=== PATIENT | male | born 1975 | race Caucasian/White ===

== ENCOUNTER 2021-08-25 08:56 | Outpatient (CLI) | payer OTHER, SELFPAY ==
--- NOTE | ~2021-08-25 | CT_ITS ---
Corrected Report Correction to ordering provider 08/25/2021 [facility] EXAMINATION: CT abdomen pelvis w con INDICATION: Epigastric abdominal pain TECHNIQUE: Computed tomographic images of the abdomen and pelvis were obtained after the administration of 100 cc of Omnipaque 350 intravenous contrast. The dose-length product (DLP) was 887.57 mGy-cm. Automated exposure control and iterative reconstruction technique were employed. COMPARISON: 08/21/2010 FINDINGS: Minimal dependent atelectasis is present in the lung bases. The heart size is normal. The liver, spleen, pancreas, gallbladder, and adrenal glands are normal. Cysts of the kidneys measure up to 1.3 cm on the right. No pathologically enlarged abdominal or pelvic lymph nodes are identified. The appendix is normal. There is no free intraperitoneal gas or evidence of bowel obstruction. There is moderate lumbar spondylosis at L4-5. IMPRESSION: 1. No CT correlate for the patient's symptoms. Reviewed, dictated and finalized at location A. MTDD
== END 2021-08-25 08:57 ==
PROVIDERS: PCP Student in an Organized Health Care Education/Training Program; Visit Provider Student in an Organized Health Care Education/Training Program
DX: R10.13 Epigastric pain (principal); R10.12 Left upper quadrant pain; M47.816 Spondylosis without myelopathy or radiculopathy, lumbar region
CPT/HCPCS: 74177; Q9967

== ENCOUNTER 2023-07-28 19:43 | Observation (INO) | payer SELFPAY ==
[2023-07-28] VITALS (17 sets, daily range): BP systolic 123–192; BP diastolic 95–115; PULSE 84–130; RESP 10–26; TEMP 36.2; O2SAT 96–100; BMI 31.9
--- NOTE | ~2023-07-28 | XR_ITS ---
EXAMINATION: XR chest 1V portable Exam Date/Time: 07/28/2023 20:32 CDT HISTORY: Dyspnea, HX OF ASTHMA Comparison: None. RESULT: Lines, tubes, and devices: None. Lungs and pleura: Clear. Cardiomediastinal silhouette: Unremarkable. Other: No acute osseous or upper abdominal finding. IMPRESSION: No acute cardiopulmonary process. Reviewed, dictated and finalized at location K.
--- NOTE | 2023-07-28 19:50 | PC.NURSE ---
Per EDP Dr. Lazaro call respiratory and have patient placed on Bi-pap
--- NOTE | 2023-07-28 19:51 | ECG_ITS ---
Measurements Intervals [place] Rate: 125 P: 87 W[place]: 162 QRS: 69 QRSD: 98 T: 82 QT: 335 QTc: 485 Interpretive Statements SINUS TACHYCARDIA NONSPECIFIC ST AND T-WAVE ABNORMALITY BASELINE ARTIFACT PRESENT NO PREVIOUS ECG AVAILABLE FOR COMPARISON Electronically Signed On 07-29-2023 13:25:12 CDT by Natalia Burt M.D.
[2023-07-28] MEDS: MAGNESIUM SULF 2 GM/WATER 50ML 2 GM/50 ML BAG IVPB (19:59)
[2023-07-28] MEDS: SODIUM CHLORIDE 0.9% IV 1,000 ML 999 ML IV CONT (20:00)
[2023-07-28] MEDS: IPRATROPIUM 0.5 MG/ALBUTEROL SULFATE 2.5 MG AMPUL.NEB 3 ML 12 ML INHALATION ×2 (20:00→21:30)
[2023-07-28] MEDS: dexAMETHasone SOD PHOS INJ 10 MG/ML 1 ML VIAL IV PUSH (20:00)
[2023-07-28 20:07] LABS: Basophils Absolute Auto 0.1 K/mm3 (0.0-0.1); Basophils Percent Auto 1.4 % (0.2-1.2); Eosinophils Absolute Auto 0.5 K/mm3 (0-0.3); Eosinophils Percent Auto 4.8 % (0-4.4); Hematocrit 44.7 % (42.0-52.0); Hemoglobin 16.2 g/dL (14.0-18.0); Immature Granulocyte Absolute 0.02 K/mm3 (0.00-0.031); Immature Granulocyte Percent A 0.2 % (0-0.5); Lymphocytes Absolute Auto 4.39 K/mm3 (0.9-3.2); Lymphocytes Percent Auto 46.1 % (18.3-44.2); Mean Corpuscular HGB Conc 36.2 g/dl (32-36); Mean Corpuscular Hemoglobin 32.3 pg (26-34); Mean Corpuscular Volume 89.2 fl (80-100); Mean Platelet Volume 8.7 fl (7.4-10.4); Neutrophils Absolute Auto 3.6 K/mm3 (1.3-6.7); Neutrophils Percent Auto 37.5 % (45.5-73.1); Platelet Count Result 318 k/mm3 (150-375); Red Blood Count 5.01 M/mm3 (4.6-6.20); Red Cell Distribution Width 11.9 % (11.5-14.5); White Blood Count 9.5 K/mm3 (4.5-10.0)
[2023-07-28 20:17] LABS: Alanine Aminotransferase 38 U/L (6-50); Albumin Level 4.9 g/dL (3.5-5.1); Alkaline Phosphatase 90 U/L (38-126); Anion Gap 11 mmol/L (4-12); Aspartate Amino Transferase 34 U/L (17-59); Bilirubin,Total 0.6 mg/dL (0.2-1.3); Blood Urea Nitrogen 25 mg/dL (9-20); Calcium 9.8 mg/dL (8.4-10.2); Carbon Dioxide 24 mmol/L (22-30); Chloride 105 mmol/L (98-107); Estimated CRCL calculation 80 ml/min; Estimated Glomerular Filt Rate > 60; Glucose 95 mg/dL (65-110); Potassium 3.6 mmol/L (3.4-5.0); Sodium 140 mmol/L (137-145)
[2023-07-28 20:19] LABS: Alveolar/Arterial O2 Gradient 115.7 mmHg; Base Excess ABG 2.4 mEq/l (+/-2.0); Fractional Inspired Oxygen 40 %; HCO3 ABG 21.3 mEq/l (22.0-26.0); Oxygen Content ABG 22.2 %vol (16.0-22.0); Oxygen Saturation ABG 99.3 % (95.0-100.0); Oxyhemoglobin 97.6 % THb (90.0-100.0); PO2 ABG 144.9 mmHg (80.0-100.0); PO2 FiO2 Ratio Arterial Blood 3.62 %
[2023-07-28 20:23] LABS: Device NON-INVASIVE VENT; Modified Allen's Test Pass; PCO2 ABG 21.4 mmHg (35.0-45.0); Site Drawn RIGHT RADIAL; pH ABG 7.615 (7.350-7.450)
[2023-07-28 20:24] LABS: Non-Invasive Expiratory Pressure 6 CMH2O; Non-Invasive Inspiratory Pressure 12 CMH2O; Non-Invasive Vent Rate 4 /MIN
[2023-07-28 20:25] LABS: NT Pro B Type Natriuretic Pept < 20 pg/mL (19.9-100)
[2023-07-28 20:44] LABS: Influenza A QL RT-PCR Negative (Negative); Influenza B QL RT-PCR Negative (Negative); RSV RNA, RT-PCR Negative (Negative); SARS-CoV-2 RNA PCR Negative (Negative)
--- NOTE | 2023-07-28 21:30 | ED.GENADULT ---
HPI - General Adult General Chief complaint: Shortness of Breath/Dyspnea Stated complaint: short of breath Time Seen by Provider: 07/28/23 19:49 History of Present Illness HPI narrative: this is a 47-year-old male presenting with shortness of breath. Patient said that 1 hour prior to arrival he started to get short of breath with significant wheezing. He does not know what triggered it. He relates this to asthma attacks he has had the past. patient notes he has had a productive cough for the last several months. Additionally he ran out of his inhaled corticosteroid several months ago and has not been able to afford a refill. Patient denies fevers chills chest pain abdominal pain or lower extremity edema. Patient required intubation over 30 years ago. Related Data Allergies Allergy/AdvReac Type Severity Reaction Status Date / Time aspirin Allergy Mild VOMITING Verified 10/01/21 12:42 [facility] Past Medical History Medical History Asthma Family History Family History Father Family history of bipolar disorder Family history of alcoholism Sibling Family history of bipolar disorder Patient's sister is in good health Family history of alcoholism Mother Patient's mother is in good health Social History Social History Smoking status: Former smoker Smoking end date: 04/24/00 Alcohol intake: never Substance use type: marijuana Exam Narrative: APPEARANCE: Patient is in respiratory distress Head: atraumatic. EYES: EOMI, NOSE: Atraumatic NECK: Trachea midline RESPIRATORY: tripoding, 1-2 word dyspnea or wheezing in all vazquez CARDIOVASCULAR: tachycardic, no peripheral edema ABDOMINAL: Non-distended MUSCULOSKELETAl: No obvious deformities NEURO: Alert. Moving 4/4 extremities SKIN:: Warm, dry. Normal color PSYCHIATRIC: Normal affect Course Vital Signs Vital signs: Vital Signs Pulse Rate 130 H 07/28/23 19:47 Respiratory Rate 23 H 07/28/23 19:47 Blood Pressure 192/115 H 07/28/23 19:47 Pulse Oximetry 98 07/28/23 19:47 Oxygen Delivery Room Air 07/28/23 19:47 Pulse Rate 88 07/28/23 21:33 Respiratory Rate 12 07/28/23 21:33 Blood Pressure 142/98 H 07/28/23 21:01 Pulse Oximetry 99 07/28/23 21:01 Oxygen Delivery Room Air 07/28/23 20:20 Medical Decision Making [facility] Narrative Medical decision making narrative: -Course: 47-year-old male presenting with respiratory distress due to asthma. Patient placed on BiPAP on arrival. Given DuoNeb treatments steroids and magnesium. Workup unremarkable. Unclear as to what triggered his asthma although he has been off of his inhaled corticosteroid for several months. After his initial breathing treatment he was weaned off bipap but still with significant wheezing. Patient be placed in observation overnight for q.6 hour nebs and steroids. -DDX includes but is not limited to: Asthma exacerbation 2/2 medication noncompliance, viral illness, pneumonia, environmental exposure -Co-morbidities complicating care: asthma exacerbation, degenerative disc disease -Social determinants of health: unemployed, used to work in a warehouse. Remote tobacco use. Recently quit using marijuana. -Independent interpretation of studies: Labs reviewed within normal limits ABG showed a metabolic alkalosis. chest x-ray unremarkable. Viral swabs negative Independent EKG interpretation: Rhythm [sinus], Rate [125], [place] -[normal], CO -[normal], QRS [narrow], QTC [normal], T waves -[negative for concerning inversions], ST Segments - [Negative for concerning elevations] Final interpretations: sinus tachycardia -Discussion of Management/Consultants: Angelica - Hospitalist -Interventions: DuoNeb x2, magnesium, steroids -Shared decision making / Disposition: admitted Vital Signs V
--- NOTE | 2023-07-28 23:22 | PM.IMHP ---
H&P: HPI History of Present Illness Date/Time: 07/28/23 23:22 Chief Complaint: SHORTNESS OF BREATH Narrative: THIS IS A 47-YEAR-OLD MALE WITH PAST MEDICAL HISTORY OF ASTHMA, PATIENT IS ALSO FORMER SMOKER QUIT OVER 20 YEARS AGO. PRESENTS TO THE EMERGENCY ROOM DUE TO SHORTNESS OF BREATH FOR THE LAST WEEK OR SO WHICH GOT WORSE IN THE LAST SEVERAL HOURS ACCORDING TO PATIENT HE HAS BEEN USING HIS INHALER QUITE OF 10 HAS HAD SPUTUM PRODUCTION OF YELLOW SPUTUM, DENIES FEVERS RIGORS OR CHILLS. UPON ARRIVAL TO EMERGENCY ROOM PATIENT DID REQUIRE BIPAP REQUIRE SEVERAL NEB TREATMENTS. PATIENT HAS BEEN PLACED IN OBSERVATION FOR FURTHER EVALUATION MANAGEMENT AND TREATMENT. EXAMINATION:? XR chest 1V portable Exam Date/Time:? 07/28/2023 20:32 CDT HISTORY: Dyspnea, HX OF ASTHMA ? Comparison:? None. RESULT: Lines, tubes, and devices:? None. Lungs and pleura:? Clear. Cardiomediastinal silhouette:? Unremarkable. Other:? No acute osseous or upper abdominal finding. ? IMPRESSION: No acute cardiopulmonary process. EXAMINATION: CT abdomen pelvis w con INDICATION: Epigastric abdominal pain TECHNIQUE: Computed tomographic images of the abdomen and pelvis were obtained after the administration of 100 cc of Omnipaque 350 intravenous contrast. The dose-length product (DLP) was 887.57 mGy-cm. Automated exposure control and iterative reconstruction technique were employed. COMPARISON: 08/21/2010 FINDINGS: Minimal dependent atelectasis is present in the lung bases. The heart size is normal. The liver, spleen, pancreas, gallbladder, and adrenal glands are normal. Cysts of the kidneys measure up to 1.3 cm on the right. No pathologically enlarged abdominal or pelvic lymph nodes are identified. The appendix is normal. There is no free intraperitoneal gas or evidence of bowel obstruction. There is moderate lumbar spondylosis at L4-5. IMPRESSION: 1. No CT correlate for the patient's symptoms. Review of Systems Review of Systems: SHORTNESS OF BREATH COUGH PRODUCTIVE OF YELLOW SPUTUM WHEEZES Constitutional: Constitutional: Denies chills, Denies fever(s), Denies malaise and Denies weakness Eyes: Eyes: Denies change in vision ENT: Denies dysphagia and Denies odynophagia Cardiovascular: Cardiovascular: Denies chest pain, Denies radiating jaw, neck or arm pain and Denies palpitations Respiratory: Respiratory: Denies change in phlegm color, Reports chest congestion, Reports cough, Reports excessive phlegm production, Reports dyspnea and Reports wheezing Gastrointestinal: Gastrointestinal: Denies abdominal pain, Denies dyspepsia, Denies heartburn, Denies diarrhea, Denies nausea and Denies vomiting Genitourinary: Genitourinary: Denies dysuria Musculoskeletal: Musculoskeletal: Denies back pain, Denies myalgias, Denies arthralgias and Denies muscle weakness Integumentary/Breasts: Skin/Breast: Denies rash Neurologic: Denies focal weakness and Denies Sensory deficit (Neuro) Psychiatric: Psychiatric: Reports no additional psychiatric complaints and Reports as per HPI Endocrine: Endocrine: Denies cold intolerance, Denies heat intolerance, Denies polyphagia, Denies polydipsia, Denies polyuria and Denies palpitations Hematologic/Lymphatic: Hematologic/Lymphatic: Reports no additional hematologic/lymphatic complaints and Reports as per HPI Allergic/Immunologic: Allergic/Immunologic: Reports no additional allergic/immunologic complaints and Reports as per HPI PMFSH Past Medical History Medical History Asthma Family History Family History Father Family history of bipolar disorder Family history of alcoholism Sibling Family history of bipolar disorder Patient's sister is in good health Family history of alcoholism Mother Patient's mother is in good health Social History Social History (Reviewed 07/28/23 @ 21:31 by Enrico Rivas
[2023-07-29] VITALS (7 sets, daily range): BP systolic 158; BP diastolic 96; PULSE 80–100; RESP 14–16; TEMP 37.1; O2SAT 96–97
[2023-07-29] MEDS: methylPREDNISolone SOD SUCC 125 MG VIAL 60 MG IV PUSH ×3 (00:36→12:04)
[2023-07-29] MEDS: IPRATROPIUM 0.5 MG/ALBUTEROL SULFATE 2.5 MG AMPUL.NEB 3 ML INHALATION ×3 (02:38→13:26)
--- NOTE | 2023-07-29 08:11 | PM.IMPN ---
Progress Note: A&P Assessment and Plan (1) Asthma exacerbation: Code(s): J45.901 - Unspecified asthma with (acute) exacerbation Status: Acute Assessment and Plan: - Trigger: Unknown - Oxygen requirement: Placed on Bipap on admission. Now on room air. Oxygen saturation stable. - Home medication: Albuterol PRN and fluticasone daily. Patient unable to afford steroid and has been out for several months. He has needed his albuterol inhaler more often as a result. - Chest XR unremarkable - ABG shows metabolic alkalosis 7.6/21.4/144/21 - Current treatment: duoneb and steroid q 6 hr - Continue to monitor Subjective Date/time seen: 07/29/23 08:11 Interval history: 47 year old male with past medical history of asthma, presented to the hospital for worsening shortness of breath. Exam Narrative: AF General: well nourished, well-developed male in no acute respiratory distress who is nontoxic appearing, lying semi recumbent in bed. HEENT: Normocephalic. Atraumatic. Pupils equal round reactive to light. Extraocular movement intact. Sclera clear and anicteric. Nares patent. No oral lesions. Moist mucous membranes. Tongue is midline. Palate maurizio symmetrically. No facial asymmetry. Neck: Neck was supple. No dominant adenopathy, thyromegaly or masses. 2+ carotid upstrokes without bruits. Chest: Lungs are clear to auscultation bilaterlly. No wheezes or crackles. CV: Heart was regular rate and rhythm. S1/S2. No murmurs, gallops, or rubs. Abd: Abdomen was soft. Nontender. Nondistended. Postive bowel sounds. No organomegaly or masses. Ext: No clubbing, cyanosis, or edema. 2+ DP pulses bilaterally. Neuro: Patient is alert and oriented x4. Strenth is 5/5 in both upper and lower extremities. Cranial nerves 2-12 are intact. Speech is clear. Psych: Normal nood and affect. Patient is pleasant and cooperative. Skin: Warm and dry. No rashes noted. Objective Data Vital Signs Vital Signs: Vital Signs - 24 hr 07/28/23 19:47 07/28/23 19:51 07/28/23 20:20 Temperature Pulse Rate 130 H 97 Respiratory Rate 23 H Blood Pressure 192/115 H Pulse Oximetry 98 97 Oxygen Delivery Room Air Room Air 07/28/23 20:20 07/28/23 20:10 07/28/23 20:16 Temperature Pulse Rate 125 H 101 H Respiratory Rate 26 H 20 Blood Pressure 153/96 H Pulse Oximetry 97 100 Oxygen Delivery Room Air 07/28/23 21:01 07/28/23 21:33 07/28/23 21:10 Temperature Pulse Rate 91 88 94 Respiratory Rate 12 12 16 Blood Pressure 142/98 H Pulse Oximetry 99 Oxygen Delivery 07/28/23 21:16 07/28/23 21:32 07/28/23 21:46 Temperature Pulse Rate 93 91 84 Respiratory Rate 14 10 L 14 Blood Pressure 123/104 H 172/105 H 158/95 H Pulse Oximetry 100 99 99 Oxygen Delivery 07/28/23 22:41 07/28/23 20:00 07/28/23 22:48 Temperature Pulse Rate 88 Respiratory Rate 12 Blood Pressure Pulse Oximetry 97 96 Oxygen Delivery BiPAP Room Air 07/28/23 22:48 07/28/23 22:39 07/28/23 20:00 Temperature Pulse Rate 95 128 H Respiratory Rate 18 26 H Blood Pressure 169/95 H Pulse Oximetry 96 97 100 Oxygen Delivery Room Air BiPAP 07/28/23 21:35 07/28/23 23:56 07/29/23 02:36 Temperature 97.1 F L Pulse Rate 84 89 82 Respiratory Rate 12 16 14 Blood Pressure 161/98 H Pulse Oximetry 100 97 Oxygen Delivery BiPAP 07/29/23 04:14 07/29/23 02:46 07/29/23 02:35 Temperature 98.7 F Pulse Rate 100 84 Respiratory Rate 16 14 Blood Pressure 158/96 H Pulse Oximetry 97 96 Oxygen Delivery Room Air 07/29/23 07:38 Temperature Pulse Rate 80 Respiratory Rate 14 Blood Pressure Pulse Oximetry Oxygen Delivery Intake/Output Intake/Output: Intake & Output 07/26/23 07/27/23 07/28/23 07/29/23 23:59 23:59 23:59 23:59 Intake Total 1050 Balance 1050 Meds/Results Medications: Active Medications Generic Name Dose Route Start Last Admin Trade Name Freq PRN Reason Stop Dose Ad
--- NOTE | 2023-07-29 14:02 | PM.DS ---
DS: Admitting Diagnosis Discharge Date 07/29/2023 Admitting Diagnosis Acute Asthma Exacerbation DS: Discharge Diagnosis Discharge Diagnosis (1) Asthma exacerbation: Code(s): J45.901 - Unspecified asthma with (acute) exacerbation Status: Acute DS: Summary Hospital Course Reason for hospitalization: Acute asthma exacerbation Hospital Course: 47 year old male with history of asthma reported to the ED for asthma exacerbation with unknown trigger requiring BIPAP on arrival. A chest XR was obtained and showed no acute cardiopulmonary process. He was started on DuoNeb treatments, steroids, and magnesium. An ABG showed metabolic alkalosis. Labs were unremarkable and viral swabs were negative. Patient was weaned off of bipap back on to room air following the duoneb and steroid treatment. His lungs are now clear on auscultation without audible wheezing. He is able to maintain full sentences and does not appear in respiratory distress. He states that he is suppose to be on a daily steroid for his asthma but has been unable to afford the medication for the past 4 months. He has been taking his albuterol inhaler 10-12 times a day during that time. He notes that he does not have health insurance currently because he is unemployed, does not qualify for medicaid, and was unable to get on his wifes insurance. [facility] was used to find a daily steroid for this patient that is at a cheaper cost than his previous. Discussed with him starting a high dose fluticasone propionate and gave him the cost per [facility]. He states that he could afford the medication and will pick it up after discharge. Patient advised to follow up with his primary care provider about the new medication and to have a low threshold of return to the hospital if he develops worsening shortness of breath or wheezing. Patient and his state understanding. Patient was discharged home with in a stable condition. He was started on high dose fluticasone propionate and will continue his other home medications as prescribed. He is to follow up with his primary care provider in a week to discuss hospitalization and new medication. Status at Discharge Functional status at discharge: independent ambulation Time Spent with Patient Time attestation: Total time spent providing and/or coordinating discharge services: Time spent: Greater than 30 minutes Exam Narrative: AF HR 82 RR 14 SpO2 97 BP 158/96 General: well nourished, well-developed male in no acute respiratory distress who is nontoxic appearing, sitting up in bed. HEENT: Normocephalic. Atraumatic. Pupils equal round reactive to light. Extraocular movement intact. Sclera clear and anicteric. No facial asymmetry. Chest: Lungs are clear to auscultation bilaterally. No wheezes or crackles. CV: Heart was regular rate and rhythm. S1/S2. No murmurs, gallops, or rubs. Abd: Abdomen was soft. Nontender. Nondistended. Positive bowel sounds. No organomegaly or masses. Ext: No clubbing, cyanosis, or edema. 2+ DP pulses bilaterally. Neuro: Patient is alert and oriented x4. Speech is clear. Psych: Normal mood and affect. Patient is pleasant and cooperative. Skin: Warm and dry. No rashes noted. DS: Data Data Completed and Pending Completed studies during hospitalization: Chest XR Labs on day of discharge: Labs from last 24 hours 07/28/23 07/28/23 20:04 19:55 WBC 9.5 RBC 5.01 Hgb 16.2 Hct 44.7 MCV 89.2 MCH 32.3 MCHC 36.2 H RDW 11.9 Plt Count 318 MPV 8.7 Immature Gran % (Auto) 0.2 Neut % (Auto) 37.5 L Lymph % (Auto) 46.1 H Rhea % (Auto) 10.0 H Eos % (Auto) 4.8 H Baso % (Auto) 1.4 H Lymph # (Auto) 4.39 H Rhea # (Auto) 1.0 H Eos # (Auto) 0.5 H Baso # (Auto) 0.1 Abs Immat Gran (auto) 0.02 Absolute Neuts (auto) 3.6 Absolute Nucleated RBC 0.000 Nucleated RBC % 0.0 Puncture Site Right radial ABG pH 7.615 H* ABG pCO2 21.4 L* ABG pO2 144.9 H ABG PO2/FiO2 Ratio
--- NOTE | 2023-07-31 15:23 | PC.NURSE ---
RN opened this chart to look at discharge information due to patient calling this unit and stating he is unable to get his medication from the pharmacy. RN called [facility] in [place] and confirmed with pharmacist the medication and she has all the information she needs. RN then called patient back and informed him that he should now be able to get his medication.
== END 2023-07-29 14:20 | disposition home or self-care (01) ==
LOC: ANHED 21:45 → ANH3MEDSUR 23:22
PROVIDERS: Admitting Provider Internal Medicine; Emergency Provider Emergency Medicine; PCP Student in an Organized Health Care Education/Training Program; Visit Provider Internal Medicine
DX: J45.901 Unspecified asthma with (acute) exacerbation (principal); Z20.822 Contact with and (suspected) exposure to COVID-19; Z87.891 Personal history of nicotine dependence
CPT/HCPCS: 36415; 36600; 71045; 80053; 82805; 83735; 83880; 85025; 87637; 93005; 94002; 94640; 96365; 96374; 96375; 96376; 99285; G0378; G0379; J1100; J2919; J3475; J7030